=== PATIENT | female | born 1995 | race Caucasian/White ===

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

== ENCOUNTER 2019-09-12 17:07 | Inpatient (IN) | payer MEDICAID ==
[2019-09-12] MEDS ORDERED: OXYTOCIN/NORMAL SALINE 20 UNIT/1,000 ML RTUINJ IV PRN ×2 (17:25→23:11)
[2019-09-12] MEDS ORDERED: RINGERS SOLUTION,LACTATED 1,000 ML IV PRN (17:25)
[2019-09-12 18:11] LABS: APPEARANCE,URINE CLOUDY; BILIRUBIN,URINE NEGATIVE (NEGATIVE); COLOR,URINE YELLOW; GLUCOSE, URINE NEGATIVE (NEGATIVE); KETONES,URINE NEGATIVE (NEGATIVE); LEUKOCYTE ESTERASE,URINE SMALL (NEGATIVE); NITRITE,URINE NEGATIVE (NEGATIVE); PROTEIN,URINE 30 mg/dL (NEGATIVE); URINE SPECIFIC GRAVITY 1.016
--- NOTE | 2019-09-12 18:17 | Admission Physical ---
Datetime Report Generated by CPN: 09/12/2019 18:17 CURRENT ADMISSION Chief Complaint: Sent from OB Office for Evaluation and Treatment - Please Specify Indication for Induction: Other Indication for Induction- Other: Cholestasis of Admit Impression : Term, Intrauterine ; No Active Labor; Induction of Labor Admit Plan: Admit to Unit; Initiate Labor Induction Protocol ALLERGIES Medication Allergies: No Medication Allergies: No Known Allergies (11/15/2016) Latex: No Latex Allergies (Annotations: Data stored by [facility] on behalf of user) Food Allergies: none Environmental Allergies: no OBSTETRICAL HISTORY EDC: 10/02/2019 00:00 : 2 Para: 1 Term: 1 Gestational Diabetes: No Rh Sensitization: No Incompetent Cervix: No MYNOR: No Infertility: No ART Treatment: No Uterine Anomaly: No IUGR: No Hx Previous C/S: No Macrosomia: No Hx Loss/Stillborn: No PIH: No Hx : No Placenta Previa/Abruption: No Depression/PP Depression: Yes PTL/PROM: No Post Hemorrhage: No Current Procedures: Ultrasound; NST Obstetrical History Comments: G1: 37.5 no complications G2: current, cholestasis SEE RECORDS Alcohol: No Marijuana : No Cocaine: No Other Illicit Drugs: No Cigarettes: Never Smoker. 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 Heart Disease: No Hosp/Surgery: No Autoimmune Disorder: No Anesthetic Complications: No Kidney Disease: No Abnormal Pap Smear: No Neuro/Epilepsy: No Psychiatric Disorders: No Other Medical Diseases: No Hepatitis/Liver Disease: No Significant Family History: No Varicosities/Phlebitis: No Trauma/Violence : No Thyroid Dysfunction: No Medical History Comments: cholestasis INFECTIOUS HISTORY Gonorrhea: No Genital Herpes: No Chlamydia: No Tuberculosis: No Syphilis: No Hepatitis: No HIV/AIDS Exposure: No Rash or Viral Illness: No HPV: No PHYSICAL EXAM General: Normal HEENT: Normal Neurologic: Normal Thyroid: Normal Heart: Normal Lungs: Normal Breast: Normal Back: Normal Abdomen: Normal Genitourinary Exam: Normal Extremities: Normal DTRs: Normal Pelvic Type: Adequate Vital Signs: Reviewed; Within Normal Limits VAGINAL EXAM Dilatation: 3 Effacement: 90 Station: 0 Contraction Comments: irregular MEMBRANES Membranes: Intact FETUS A EGA: 37.1 Monitoring: External US FHR- Baseline: 140s Variability: Moderate 6-25bpm Accelerations: 15X15 Decelerations: None FHR Category: Category I Admit Comment: w/ an IUP @ 37-1/7 weeks presents to L_D for an IOL secondary to Cholestasis of . She was seen in the office and had elevated bile acids and or Ursodiol. She reports good movement. Her cervix per Dr. Woods is 3 cm. GBS Neg. PLANS FOR LABOR AND DELIVERY Labor and Delivery: None Pain Management: Natural Feeding Preference: Formula Benefit of Breast Feed Discussed: Yes Circumcision: N/A INFORMED CONSENT Signature: with User ID: [email or web address]
[2019-09-12 18:28] LABS: URINE AMPHETAMINES SCREEN NEGATIVE; URINE BARBITURATES SCREEN NEGATIVE; URINE BENZODIAZEPINES SCREEN NEGATIVE; URINE COCAINE SCREEN NEGATIVE; URINE MARIJUANA (THC) SCREEN NEGATIVE; URINE METHADONE SCREEN NEGATIVE; URINE PHENCYCLIDINE SCREEN NEGATIVE
[2019-09-12] MEDS ORDERED: OXYTOCIN/NORMAL SALINE 20 UNIT/1,000 ML RTUINJ ONE (18:32)
[2019-09-12 18:36] LABS: ABSOLUTE EOSINOPHILS # (AUTO) 0.2 10^3/uL (0.0-0.6); ABSOLUTE LYMPHOCYTES (AUTO) 1.7 10^3/uL (0.5-4.7); ABSOLUTE MONOCYTES (AUTO) 0.8 10^3/uL (0.1-1.4); ABSOLUTE NEUT (AUTO) 7.2 10^3/uL (1.7-8.2); BASOPHILS % (AUTO) 0.4 % (0-2); EOSINOPHILS % (AUTO) 1.7 % (0-6); HEMATOCRIT 29.1 % (36.0-47.0); HEMOGLOBIN 10.1 g/dL (12.0-15.5); LYMPHOCYTES % (AUTO) 17.4 % (13-45); MEAN CORPUSCULAR HEMOGLOBIN 29.6 pg (27.0-33.4); MEAN CORPUSCULAR HGB CONC 34.6 g/dL (32.0-36.0); MEAN CORPUSCULAR VOLUME 85 fl (80-97); MONOCYTES % (AUTO) 8.1 % (3-13); PLATELET COUNT 229 10^3/uL (150-450); RED CELL DISTRIBUTION WIDTH 13.7 % (11.5-14.0); SEGMENTED NEUTROPHILS % (AUTO) 72.4 % (42-78); TOTAL CELLS COUNTED % (AUTO) 100 %; WHITE BLOOD COUNT 9.9 10^3/uL (4.0-10.5)
[2019-09-12] MEDS ORDERED: OXYTOCIN 10 UNIT/ML VIAL ONE (20:24)
[2019-09-12] MEDS ORDERED: MISOPROSTOL 0.2 MG TABLET ONE (20:24)
[2019-09-12] MEDS ORDERED: LIDOCAINE 1% INJ-PF (10 MG/ML) 30 ML SDV ONE (20:25)
[2019-09-12] MEDS ORDERED: PROMETHAZINE HCL INJ 25 MG/1 ML VIAL ONE (21:44)
[2019-09-12] MEDS ORDERED: NALBUPHINE HCL INJ 10 MG/1 ML AMPULE ONE (21:45)
[2019-09-12] MEDS ORDERED: PROMETHAZINE HCL INJ 25 MG/1 ML VIAL IV ONE (22:30)
[2019-09-12] MEDS ORDERED: NALBUPHINE HCL INJ 10 MG/1 ML AMPULE INJ ONE (22:30)
[2019-09-12] MEDS ORDERED: BENZOCAINE/MENTHOL AEROSOL SPRAY 56 ML TOP PRN (23:11)
[2019-09-12] MEDS ORDERED: DIBUCAINE 1% OINTMENT 56 GM TP PRN (23:11)
[2019-09-12] MEDS ORDERED: DIPH/PERTUSS(ACELL)/TETANUS VAC/PF 0.5 ML SYR (>=10YO) IM PRN (23:11)
[2019-09-12] MEDS ORDERED: ZOLPIDEM TARTRATE 5 MG TABLET PO PRN (23:11)
[2019-09-12] MEDS ORDERED: ACETAMINOPHEN WITH CODEINE #3 TABLET PO PRN ×2 (23:11)
--- NOTE | 2019-09-12 23:38 | Warning Signs in Babies ---
VOD Warning Signs Datetime Report Generated by [facility]: 09/12/2019 23:37 VOD#608 -Warning Signs in Babies: Needs to be viewed. (09/12/2019 17:27:Shobha Crews RN)
[2019-09-13] MEDS ORDERED: IBUPROFEN 800 MG TABLET ONE (00:20)
[2019-09-13] MEDS ORDERED: IBUPROFEN 800 MG TABLET PO ONE (00:30)
--- NOTE | 2019-09-13 01:01 | Delivery Summary ---
Del Sum A-C Datetime Report Generated by CPN: 09/13/2019 01:00 DELIVERY PERSONNEL DELIVERY PERSONNEL: [id number] Delivery Doctor:: Eileen El MD Labor and Delivery Nurse:: Trav Crews RNcertified prosthetist Nurse:: Sussy Jc RN Cyber [employer] Planner:: Elizabeth Flanagan RN MATERNAL INFORMATION Delivery Anesthesia: None Medications After Delivery: Pitocin Bolus-Please Comment; Cytotec 800mcg Per Rectum/Vagina Meds After Delivery Comment: pitocin 20 units in 1000 NSS IV bolus Delivery QBL: 50 Delivery QBL Comment: 50 ml Maternal Complications: Precipitous Labor (<3hrs) Provider Comments: of a viable female @ 2258 w/ an [place] presentation; APGARs 8, 9; no lacs LABOR SUMMARY EDC: 10/02/2019 00:00 No. Babies in Womb: 1 Attempted: No Labor Anesthesia: None LABOR INFORMATION Reason for Induction: Not Applicable Onset of Labor: 09/12/2019 21:36 Complete Dilatation: 09/12/2019 22:49 Oxytocin: Induction Group B Beta Strep: negative Antibiotics # of Doses: 0 Steroids Given: None Reason Steroids Not Administered: Not Applicable MEMBRANES Membranes Rupture Method: Artificial Rupture of Membranes: 09/12/2019 19:53 Length of Rupture (hr): 3.08 Amniotic Fluid Color: Clear Amniotic Fluid Amount: Small Amniotic Fluid Odor: Normal STAGES OF LABOR Stage 1 hr: 1 Stage 1 min: 13 Stage 2 hr: 0 Stage 2 min: 9 Stage 3 hr: 0 Stage 3 min: 5 Total Time in Labor hr: 1 Total Time in Labor min: 27 VAGINAL DELIVERY Episiotomy: None Laceration #1: None Laceration Extension #1: N/A Laceration Repair: Not Applicable Sponge Count Correct: Yes Sharps Count Correct: Yes CSECTION DELIVERY Primary Indication: N/A Secondary Indication: N/A CSection Incidence: N/A Labor: N/A Elective: N/A CSection Incision: N/A BABY A INFORMATION Delivery Date/Time: 09/12/2019 22:58 Method of Delivery: Vaginal Born in Route : No : N/A Forceps: N/A Vacuum Extraction: N/A Shoulder Dystocia : No PRESENTATION/POSITION BABY A Presentation: Cephalic Cephalic Presentation: Vertex Vertex Position: Right Occipital Anterior Breech Presentation: N/A PLACENTA INFORMATION BABY A Placenta Delivery Time : 09/12/2019 23:03 Placenta Method of Delivery: Spontaneous Placenta Status: Delivered SCORES BABY A Heart Rate 1 min: >100 bpm Resp Effort 1 min: Good Cry Reflex Irritability 1 min: Cough or Sneeze or Pulls Away Muscle Tone 1 min: Active Motion Color 1 min: Blue/Pale Resuscitation Effort 1 min: Tactile Stimulation SCORE 1 MIN: 8 Heart Rate 5 min: >100 bpm Resp Effort 5 min: Good Cry Reflex Irritability 5 min: Cough or Sneeze or Pulls Away Muscle Tone 5 min: Active Motion Color 5 min: Body [place], Extremities Blue Resuscitation Effort 5 min: Tactile Stimulation SCORE 5 MIN: 9 INFORMATION BABY A Gestational Age at Delivery: 37.1 Gestational Status: Early Term- 37- 38.6 Weeks Outcome : Liveborn Condition : Stable Infant Sex: Female IDENTIFICATION BABY A Infant Verification Date/Time: 09/12/2019 23:06 ID Band Number: [id number] Mother's Name Verified: Yes RN Verifying : Zoila Flanagan. RN Additional Verifying Personnel: Sussy Jc RN WEIGHT/LENGTH BABY A Birthweight (gm): 3130 Infant Weight (lb): 6 Weight (oz): 14 Infant Length (in): 19.25 Infant Length (cm): 48.90 CORD INFORMATION BABY A No. Cord Vessels: 3 Nuchal Cord : N/A Cord Blood Taken: Yes-For Storage (Mom's Blood type +) Infant Suction: Mouth; Nose ASSESSMENT BABY A Skin to Skin: Yes BABY B INFORMATION : N/A SIGNATURES Signature: with User ID: Michelle
[2019-09-13] MEDS ORDERED: IBUPROFEN 800 MG TABLET PO SCH (06:00)
[2019-09-13 08:30] LABS: HEMOGLOBIN 9.6 g/dL (12.0-15.5); MEAN CORPUSCULAR HEMOGLOBIN 28.4 pg (27.0-33.4); MEAN CORPUSCULAR VOLUME 86 fl (80-97); PLATELET COUNT 205 10^3/uL (150-450); RED BLOOD COUNT 3.37 10^6/uL (3.72-5.28); RED CELL DISTRIBUTION WIDTH 14.3 % (11.5-14.0); WHITE BLOOD COUNT 14.9 10^3/uL (4.0-10.5)
--- NOTE | 2019-09-13 08:44 | PDOC PROGRESS REPORT ---
Subjective-OB Progress Note for:: 09/13/19 Subjective: Doing well, no c/o, hsb at BS, scant bleeding Physical Exam (OB) Vital Signs: Temp Pulse Resp BP Pulse Ox 97.7 F 68 18 100/53 L 100 09/13/19 07:53 09/13/19 07:53 09/13/19 07:53 09/13/19 07:53 09/13/19 07:53 Intake & Output 09/12/19 09/13/19 09/14/19 06:59 06:59 06:59 Weight 63.4 kg Objective-Diagnostic Laboratory: 09/13/19 07:55 09/12/19 09/12/19 09/12/19 17:30 18:20 18:20 WBC 9.9 RBC 3.40 L Hgb 10.1 L Hct 29.1 L MCV 85 MCH 29.6 MCHC 34.6 RDW 13.7 Plt Count 229 Seg Neutrophils % 72.4 Urine Color YELLOW Urine Appearance CLOUDY Urine pH 7.0 Ur Specific [place] 1.016 Urine Protein 30 H Urine Glucose (UA) NEGATIVE Urine Ketones NEGATIVE Urine Blood NEGATIVE Urine Nitrite NEGATIVE Ur Leukocyte Esterase SMALL H Blood Type AB POSITIVE Antibody Screen NEGATIVE 09/13/19 07:55 WBC 14.9 H RBC 3.37 L Hgb 9.6 L Hct 29.0 L MCV 86 MCH 28.4 MCHC 33.0 RDW 14.3 H Plt Count 205 Seg Neutrophils % Urine Color Urine Appearance Urine pH Ur Specific [place] Urine Protein Urine Glucose (UA) Urine Ketones Urine Blood Urine Nitrite Ur Leukocyte Esterase Blood Type Antibody Screen Assessment and Plan(PN) - Assessment and Plan (1) Anemia Qualifiers: Anemia type: iron deficiency Is this a current diagnosis for this admission?: Yes (2) Delivery normal Is this a current diagnosis for this admission?: Yes - Time Spent with Patient Time with patient: Less than 15 minutes Medications reviewed and adjusted accordingly: Yes - Disposition Anticipated Discharge: Home Within: within 24 hours
[2019-09-13] MEDS ORDERED: IRON SUCROSE COMPLEX INJ/PF 100 MG/5 ML SDV IV ONE (09:00)
[2019-09-13] MEDS: DOCUSATE SODIUM 100 MG CAPSULE PO SCH ×2 (09:20→17:16)
[2019-09-13] MEDS: FERROUS SULFATE 325 MG TABLET PO SCH ×2 (09:20→17:16)
[2019-09-13] MEDS: IBUPROFEN 800 MG TABLET PO SCH ×3 (09:20→23:12)
[2019-09-13] MEDS ORDERED: PRENATAL VITAMIN W DHA CAPSULE PO SCH (10:00)
[2019-09-13] MEDS ORDERED: SENNOSIDES/DOCUSATE 8.6-50 MG 1 EACH TABLET PO SCH (10:00)
[2019-09-14] MEDS: IBUPROFEN 800 MG TABLET PO SCH (07:00)
[2019-09-14 07:39] VITALS: BP 109/73
--- NOTE | 2019-09-14 09:36 | PDOC PROGRESS REPORT ---
Subjective-OB Progress Note for:: 09/14/19 Subjective: Doing well, no c/o, ready to go home, holding baby, bottle feeding Physical Exam (OB) Vital Signs: Temp Pulse Resp BP Pulse Ox 97.4 F 58 L 18 109/73 100 09/14/19 07:35 09/14/19 07:35 09/14/19 07:35 09/14/19 07:35 09/14/19 07:35 Intake & Output 09/13/19 09/14/19 09/15/19 06:59 06:59 06:59 Intake Total 400 Balance 400 Weight 63.4 kg - PIH/Pre-Eclampsia DTR's: 2 + Clonus: Positive Headache: Absent Epigastric Pain: No Visual Changes: No - Lochia Lochia Amount: Scant < 10 ml Lochia Color: Rubra/Red - Abdomen Description: Tender, Soft Hernia Present: No Fundal Description: Firm, Midline Fundal Height: u/u - u/2 Objective-Diagnostic Laboratory: 09/13/19 07:55 Assessment and Plan(PN) - Assessment and Plan (1) Anemia Qualifiers: Anemia type: iron deficiency Is this a current diagnosis for this admission?: Yes (2) Delivery normal Is this a current diagnosis for this admission?: Yes - Time Spent with Patient Time with patient: Less than 15 minutes Medications reviewed and adjusted accordingly: Yes - Disposition Anticipated Discharge: Home Within: within 24 hours
--- NOTE | 2019-09-14 09:42 | PDOC DISCHARGE SUMMARY ---
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 Is this a current diagnosis for this admission?: Yes - Additional Information Resuscitation Status: Full Code Discharge Diet: As Tolerated, Regular Discharge Activity: Activity As Tolerated, No Lifting Over 10 Pounds, No Lifting/Push/Pulling, Pelvic Rest Referrals: ODILON PAYNE DO [Primary Care Provider] - (RTC 4 weeks) Home Medications: Pnv,Calcium 72/Iron/Folic Acid [Pnv Plus Multivit Tab] 1 each PO DAILY 11/15/16 Ferrous Sulfate [Feosol 325 mg Tablet] 325 mg PO BID #0 tablet 11/17/16 HPI Gestational Age: 37.1 Reason(s) for Admission: Induction of Labor Procedures: NST, Ultrasound Intrapartum Procedure(s): Spontaneous Vaginal Delivery Complication(s) Note: baby home with mom Hospital Course Hospital Course: routine Results Laboratory Results: WBC 14.9 10^3/uL (4.0-10.5) H 09/13/19 07:55 RBC 3.37 10^6/uL (3.72-5.28) L 09/13/19 07:55 Hgb 9.6 g/dL (12.0-15.5) L 09/13/19 07:55 Hct 29.0 % (36.0-47.0) L 09/13/19 07:55 MCV 86 fl (80-97) 09/13/19 07:55 MCH 28.4 pg (27.0-33.4) 09/13/19 07:55 MCHC 33.0 g/dL (32.0-36.0) 09/13/19 07:55 RDW 14.3 % (11.5-14.0) H 09/13/19 07:55 Plt Count 205 10^3/uL (150-450) 09/13/19 07:55 Lymph % (Auto) 17.4 % (13-45) 09/12/19 18:20 [place] % (Auto) 8.1 % (3-13) 09/12/19 18:20 Eos % (Auto) 1.7 % (0-6) 09/12/19 18:20 Baso % (Auto) 0.4 % (0-2) 09/12/19 18:20 Absolute Neuts (auto) 7.2 10^3/uL (1.7-8.2) 09/12/19 18:20 Absolute Lymphs (auto) 1.7 10^3/uL (0.5-4.7) 09/12/19 18:20 Absolute Monos (auto) 0.8 10^3/uL (0.1-1.4) 09/12/19 18:20 Absolute Eos (auto) 0.2 10^3/uL (0.0-0.6) 09/12/19 18:20 Absolute Basos (auto) 0.0 10^3/uL (0.0-0.2) 09/12/19 18:20 Seg Neutrophils % 72.4 % (42-78) 09/12/19 18:20 Urine Color YELLOW 09/12/19 17:30 Urine Appearance CLOUDY 09/12/19 17:30 Urine pH 7.0 (5.0-9.0) 09/12/19 17:30 Ur Specific Cornelius 1.016 09/12/19 17:30 Urine Protein 30 mg/dL (NEGATIVE) H 09/12/19 17:30 Urine Glucose (UA) NEGATIVE mg/dL (NEGATIVE) 09/12/19 17:30 Urine Ketones NEGATIVE mg/dL (NEGATIVE) 09/12/19 17:30 Urine Blood NEGATIVE (NEGATIVE) 09/12/19 17:30 Urine Nitrite NEGATIVE (NEGATIVE) 09/12/19 17:30 Urine Bilirubin NEGATIVE (NEGATIVE) 09/12/19 17:30 Urine Urobilinogen 2.0 mg/dL (<2.0) H 09/12/19 17:30 Ur Leukocyte Esterase SMALL (NEGATIVE) H 09/12/19 17:30 Urine Ascorbic Acid 40 (NEGATIVE) H 09/12/19 17:30 Urine Opiates Screen NEGATIVE 09/12/19 17:35 Urine Methadone Screen NEGATIVE 09/12/19 17:35 Ur Barbiturates Screen NEGATIVE 09/12/19 17:35 Ur Phencyclidine Scrn NEGATIVE 09/12/19 17:35 Ur Amphetamines Screen NEGATIVE 09/12/19 17:35 U Benzodiazepines Scrn NEGATIVE 09/12/19 17:35 Urine Cocaine Screen NEGATIVE 09/12/19 17:35 U Marijuana (THC) Screen NEGATIVE 09/12/19 17:35 Blood Type AB POSITIVE 09/12/19 18:20 Antibody Screen NEGATIVE 09/12/19 18:20 Plan Health Concerns: routine Plan of Treatment: discharge home, routine pp care Goals: no complications Time Spent: Less than 30 Minutes
== END 2019-09-14 12:40 | disposition home or self-care (01) | DRG 805 ==
LOC: LR 17:07 → 2S 09-13 01:20
PROVIDERS: ADMIT Obstetrics & Gynecology; ATTEND Obstetrics & Gynecology
PROC: 10E0XZZ Delivery of Products of Conception, External Approach (ICD-10-PCS; principal; 2019-09-12)
PROC: 10907ZC Drainage of Amniotic Fluid, Therapeutic from Products of Conception, Via Natural or Artificial Opening (ICD-10-PCS; 2019-09-12)
DX: O26.62 Liver and biliary tract disorders in childbirth (principal); K83.1 Obstruction of bile duct; D50.9 Iron deficiency anemia, unspecified; O99.02 Anemia complicating childbirth; O62.3 Precipitate labor; Z3A.37 37 weeks gestation of pregnancy; Z37.0 Single live birth
CPT/HCPCS: 36415; 80307; 81005; 85025; 85027; 86592; 86850; 86900; 86901; J1756; J2300; J2550; J2590; J3490

== ENCOUNTER 2019-12-17 09:58 | Day surgery (SDC) | payer BC, MEDICAID ==
[2019-12-08 11:10] LABS: APPEARANCE,URINE SLIGHTLY-CLOUDY; BILIRUBIN,URINE NEGATIVE (NEGATIVE); COLOR,URINE YELLOW; GLUCOSE, URINE NEGATIVE (NEGATIVE); KETONES,URINE NEGATIVE (NEGATIVE); LEUKOCYTE ESTERASE,URINE NEGATIVE (NEGATIVE); NITRITE,URINE NEGATIVE (NEGATIVE); PROTEIN,URINE NEGATIVE (NEGATIVE); URINE SPECIFIC GRAVITY 1.019; UROBILINOGEN,URINE NEGATIVE mg/dL (<2.0)
[2019-12-08 11:12] LABS: HEMATOCRIT 37.8 % (36.0-47.0); HEMOGLOBIN 12.8 g/dL (12.0-15.5); MEAN CORPUSCULAR HEMOGLOBIN 29.1 pg (27.0-33.4); MEAN CORPUSCULAR HGB CONC 33.9 g/dL (32.0-36.0); MEAN CORPUSCULAR VOLUME 86 fl (80-97); PLATELET COUNT 315 10^3/uL (150-450); RED BLOOD COUNT 4.41 10^6/uL (3.72-5.28); RED CELL DISTRIBUTION WIDTH 13.9 % (11.5-14.0); WHITE BLOOD COUNT 5.2 10^3/uL (4.0-10.5)
[~2019-12-17 09:58] MED LIST: BUPIVACAINE HCL 0.5%-EPI 1:200000 INJ/PF 30 ML VIAL ONE; LACTATED RINGERS 1000 ML IV PRN; LIDOCAINE 0.5% INJ-PF (5 MG/ML) 50 ML SDV SUBCUT PRN; ROCURONIUM BROMIDE INJ 50 MG/5 ML VIAL IV ONE; SUCCINYLCHOLINE CHLORIDE INJ 200 MG/10 ML VIAL ONE
[2019-12-17] MEDS ORDERED: ONDANSETRON HCL INJ/PF 4 MG/2 ML SDV ONE (11:44)
[2019-12-17] MEDS ORDERED: DEXAMETHASONE SOD PHOSPHATE INJ 4 MG/1 ML VIAL ONE (11:44)
[2019-12-17] MEDS ORDERED: FENTANYL CITRATE INJ/PF 100 MCG/2 ML AMPUL ONE (11:44)
[2019-12-17] MEDS ORDERED: MIDAZOLAM 2 MG/2 ML INJ ONE (11:44)
[2019-12-17] MEDS ORDERED: MORPHINE SULFATE 10 MG/ML INJ ONE (11:45)
[2019-12-17] MEDS ORDERED: PROPOFOL INJ 200 MG/20 ML VIAL IV ONE (11:45)
[2019-12-17] MEDS ORDERED: FENTANYL CITRATE INJ/PF 100 MCG/2 ML AMPUL IV PRN ×3 (12:50)
[2019-12-17] MEDS ORDERED: MORPHINE SULFATE 10 MG/ML INJ IV PRN (12:50)
[2019-12-17] MEDS ORDERED: MEPERIDINE HCL/PF INJ 25 MG/1 ML DISP.SYRIN IV PRN (12:50)
[2019-12-17] MEDS ORDERED: DIPHENHYDRAMINE HCL 50 MG/ML VIAL IV PRN (12:50)
[2019-12-17] MEDS ORDERED: PROMETHAZINE HCL INJ 25 MG/1 ML VIAL IV PRN ×2 (12:50)
[2019-12-17] MEDS ORDERED: SUGAMMADEX SODIUM 200 MG/2 ML SDV IV ONE (13:09)
[2019-12-17] MEDS ORDERED: ACETAMINOPHEN 1,000 MG/100 ML RTUPB IV ONE (13:31)
[2019-12-17] MEDS ORDERED: KETOROLAC TROMETHAMINE INJ/PF 30 MG/1 ML SDV ONE (13:31)
[2019-12-17] MEDS: FENTANYL CITRATE INJ/PF 100 MCG/2 ML AMPUL ONE ×2 (13:42→13:43)
[2019-12-17] MEDS ORDERED: IBUPROFEN 800 MG TABLET PO PRN (13:55)
[2019-12-17] MEDS ORDERED: OXYCODONE-ACETAMINOPHEN 5-325 MG TABLET PO PRN ×2 (13:55)
--- NOTE | 2019-12-17 14:09 | Operative Report ---
Operative Report DATE OF SURGERY: 12/17/19 PREOPERATIVE DIAGNOSIS: Undesired fertilty. Multiparity POSTOPERATIVE DIAGNOSIS: same as above OPERATION: Laparoscopic bilateral tubal ligation SURGEON: JOSHUA PALACIOS ANESTHESIA: GA TISSUE REMOVED OR ALTERED: none COMPLICATIONS: None ESTIMATED BLOOD LOSS: 5cc INTRAOPERATIVE FINDINGS: Normal appearing fallopian tubes, ovaries and uterus. Liver edge noted to be normal. PROCEDURE: IV fluids: per anesthesia record Urinary output: 100 cc Findings: Normal-appearing uterus bilateral fallopian tubes and ovaries. Liver seen and appears normal Position: To recovery room in stable condition Description of procedure: The patient was taken to the operating room and general anesthesia was administered and found to be adequate. She was then placed on the OR table in the dorsal lithotomy position. The Patient was prepped and draped in usual sterile fashion. Timeout was taken. A Nino retractor was used as well as a weighted speculum to visualize the cervix. The Hive guard unlimited uterine manipulator was placed. Legs were lowered. At this time attention was turned of the patient's abdomen and sterile gloves were donned a 1 cm infra umbilical incision was made horizontally and carried down to the level of the rectus fascia. The rectus fascia was then grasped with 2 Monie clamps elevated and incised with Mcelroy scissors. A digital sweep was done noting entry into the peritoneum. The fascia was tagged bilaterally with 0-vicryl suture. A #10 Sy trocar was positioned and CO2 gas was used to insufflate the abdomen to a quantity sufficient for the laparoscopy. The laparoscope was inserted and a survey was done of the abdomen pictures were obta ined. Findings noted normal anatomy. The right fallopian tube was identified and traced to its fimbriated end. The right ovary was noted to be normal. A Filshie clip was then placed approximately 1 to 2 cm from the uterine cornu across the right fallopian tube. The Filshie clip was noted to surround the tube in its entirety good blanching and hemostasis was noted. The left fallopian tube was then traced to its fibriated end and a Filshie clip was placed 2-3 cm from the uterine cornu on the left fallopian tube. The Filshie clip was noted to surround the tube in its entirety with good blanching and hemostasis was noted. Pictures were obtained. At this point the procedure was terminated. All instrument removed from the patient's abdomen and CO2 gas was allowed to escape. The infraumbilical port was removed. The fascia was closed with 0 Vicryl suture. The skin was closed with 3-0 Monocryl in a series of interrupted stitiches. The skin incision was then clean dried and Dermabond was applied over the skin incision. All instrument sponge and needle counts were correct x3 for the procedure the patient tolerated the procedure well. She will proceed to recovery room in stable condition
--- NOTE | 2019-12-17 14:10 | Discharge Summary ---
Discharge Summary (SDC) - Discharge Final Diagnosis: Unwanted fertility Multiparity Date of Surgery: 12/17/19 Condition: Stable Forms: ASU Anesthesia D/C Instruction, Discharge POC-Surgical Service Treatment or Instructions: Follow up in office in 2 wks. Nothing in vaginal 2 wks. Shower and pat incision dry Call for fever, chills, nausea, vomiting or excess bleeding Prescriptions: Ibuprofen [Ibu] 800 mg PO Q8 10 Days #30 tablet Oxycodone HCl/Acetaminophen [Percocet 5-325 mg Tablet] 1 tab PO Q4 5 Days #15 tab Referrals: CHRISTINE HERNANDEZ NP [Primary Care Provider] - JOSHUA PALACIOS MD [ACTIVE PROVISIONAL STAFF] - Respiratory Treatments at Home: Deep Breathing/Coughing Discharge Activity: Activity As Tolerated Report the Following to Your Physician Immediately: Shortness of Breath, Nausea, Vomiting, Increase in Pain, Fever over 101 Degrees, Unusual Bleeding, Drainage- Foul Smelling, Wheezing, IV Site Infection Signs
[2019-12-17] MEDS ORDERED: IBUPROFEN 800 MG TABLET ONE (14:20)
[2019-12-17 16:48] VITALS: BP 111/70
== END 2019-12-17 16:15 | disposition home or self-care (01) ==
LOC: OROUT 09:58
PROVIDERS: ATTEND Obstetrics & Gynecology
DX: Z30.2 Encounter for sterilization (principal)
CPT/HCPCS: 36415; 85027; 81005; 81025; 58670; J2250; J3490 ×3; J1100; J3010; J1885; J2270; J0330; J2405; J2704; J0131; 851